=== PATIENT | female | born 1965 | race Caucasian/White ===

== ENCOUNTER → 2016-09-18 | Outpatient (CLI) | payer OTHER ==
[~2016-09-18] MED LIST: ACTIGALL300 MG GT; ALPRAZOLAM0.25 MG GT; ALPRAZOLAM0.5 MG GT; ALPRAZOLAM0.5 MG PO; ANTIHIST12.5 MG/5 GT; APAP PO; ATARAX10 MG GT; ATARAX10 MG PO; ATARAX2 MG/ML GT; AUGMENTIN600 MG/5 M PO; Atarax GT; Atarax PO; BENADRYL25 MG GT; BENTYL10 MG PO; BENTYL20 MG GT; BUSPAR15 MG GT; CHERATUSSIN AC473 ML PO; CHILDREN'S ASPI81 M1 GT; CHILDREN'S100 MG/5 M GT; Children's Advil GT; Colchicine,Colcrys PO; DICYCLOMINE HCL20 MG GT; DILAUDID1 GM MC; DILAUDID2 MG GT; DILAUDID2 MG PO; Dilaudid GT; FERROUS SULFAT325 MG GT; FERROUS SULFAT325 MG PO; FLEXERIL10 MG GT; Feosol GT; Flexeril PO; GABAPENTIN300 MG GT; GAS RELIEF125 M1 GT; HYDROMORPHONE GT; HYDROXYZINE HCL10 MG GT; IBUPROFEN600 MG PO; KEFLEX250 MG/5 M PO; LASIX20 MG PO; LEVAQUIN500 MG PO; LEXAPRO10 MG GT; LEXAPRO10 MG PO; LEXAPRO20 MG GT; LIDODERM 5% P1 PATCH TD; LIQUACEL976 ML GT; LOMOTIL TABLET1 EACH GT; LOMOTIL,LONO1 TABLET GT; LOMOTIL,LONO1 TABLET PO; LOVENOX40 MG/0.4 SC; MOTRIN600 MG GT; MUPIROCIN22 GM TP; MYLANTA125 MG GT; Maalox, Mylanta GT; NAPROSYN-EC 37375 MG GT; NAPROSYN375 MG GT; NAPROSYN500 MG PO; NEURONTIN300 MG GT; NEURONTIN300 MG PO; NEURONTIN50 MG/ML GT; NEURONTIN600 MG GT; NORPRAMIN10 MG PO; Neurontin GT; OLANZAPINE15 MG PO; OSMOLITE1000 M1 GT; OSMOLITE1000 M1 PO; OXYCODONE-APAP1 EACH GT; PERCOCET 10/1 TABLET GT; PERCOCET 5/31 TABLET GT; PERCOCET 5/31 TABLET PO; PHENERGAN12.5 M1 G-TUBE; PHENERGAN25 MG PR; PREVACID SOLUTA30 M1 GT; PROMETHAZINE GT; PROMETHAZINE HC25 M1 G-TUBE; PROMETHAZINE HC25 M1 GT; PROPOXY N PO; PROPOXYPHENE1 TABLET PO; Pepcid IV; RANITIDINE HCL150 MG PO; RANITIDINE HCL300 M1 GT; RANITIDINE HCL300 MG GT; RANITIDINE HCL300 MG PO; REGLAN10 MG/10 M GT; Silvadene,SSD,Therma TP; TRAMADOL HCL50 MG GT; TYLENOL PM1 CAPLET GT; TYLENOL650 MG/20. GT; Tylenol PR; UNISOM SLEEP AI25 MG PO; VANCOCIN HCL125 MG PO; Vancocin Oral Soluti GT; Vancocin Oral Solution GT; XANAX0.25 MG GT; XANAX0.5 MG GT; XANAX0.5 MG PO; Xanax GT; ZANTAC150 M1 PO; ZANTAC300 MG GT; ZYVOX600 MG PO; Zantac GT; [UNRECOGNIZED DRUG - OTHER] PO; [UNRECOGNIZED DRUG - REMARK] J; celeXA GT
== END | disposition home or self-care (01) ==
LOC: RAD 13:18 → EDSTATUS 13:30 → RAD 13:30
PROC: 0DH67UZ Insertion of Feeding Device into Stomach, Via Natural or Artificial Opening (ICD-10-PCS; principal; 2016-09-18)
DX: K94.20 Gastrostomy complication, unspecified (principal)
CPT/HCPCS: B4087; C1769

== ENCOUNTER → 2016-11-12 | Outpatient (CLI) | payer OTHER ==
[~2016-11-12] MED LIST changes: +ALLEGRA ALLERG180 MG PO; +MIRTAZAPINE7.5 MG PO; +NEURONTIN100 MG PO; +PRILOSEC20 MG PO; +ZANAFLEX2 M1 PO
== END | disposition home or self-care (01) ==
LOC: RAD 13:44 → EDSTATUS 14:30
PROC: 0DH67UZ Insertion of Feeding Device into Stomach, Via Natural or Artificial Opening (ICD-10-PCS; principal; 2016-11-12)
DX: K94.20 Gastrostomy complication, unspecified (principal)
CPT/HCPCS: B4087; C1766

== ENCOUNTER → 2017-01-14 | Outpatient (CLI) | payer OTHER | END | disposition home or self-care (01) | LOC: RAD 14:28 | PROC: 0DH67UZ Insertion of Feeding Device into Stomach, Via Natural or Artificial Opening (ICD-10-PCS; principal; 2017-01-14) | DX: K94.20 Gastrostomy complication, unspecified (principal) | CPT/HCPCS: B4087; C1769 ==

== ENCOUNTER → 2017-03-17 | Outpatient (CLI) | payer OTHER | END | disposition home or self-care (01) | LOC: RAD 12:32 → EDSTATUS 13:30 | PROC: 0DHA7DZ Insertion of Intraluminal Device into Jejunum, Via Natural or Artificial Opening (ICD-10-PCS; principal; 2017-03-17) | DX: K94.20 Gastrostomy complication, unspecified (principal) | CPT/HCPCS: B4087; C1769 ==

== ENCOUNTER → 2017-05-19 | Outpatient (CLI) | payer OTHER | END | disposition home or self-care (01) | LOC: EDSTATUS 05-14 14:30 → RAD 05-14 14:30 | PROC: 0DH87UZ Insertion of Feeding Device into Small Intestine, Via Natural or Artificial Opening (ICD-10-PCS; principal; 2017-05-19) | DX: K94.20 Gastrostomy complication, unspecified (principal) | CPT/HCPCS: C1769 ==

== ENCOUNTER → 2017-07-21 | Outpatient (CLI) | payer OTHER ==
[~2017-07-21] MED LIST changes: +VITAMIN B122500 MCG GT
== END | disposition home or self-care (01) ==
LOC: RAD 07-20 09:00
DX: K94.20 Gastrostomy complication, unspecified (principal)
CPT/HCPCS: B4087; C1769

== ENCOUNTER → 2017-09-22 | Outpatient (CLI) | payer OTHER | END | disposition home or self-care (01) | LOC: RAD 09:00 | PROC: 0DH87UZ Insertion of Feeding Device into Small Intestine, Via Natural or Artificial Opening (ICD-10-PCS; principal; 2017-09-22) | PROC: 0DH67UZ Insertion of Feeding Device into Stomach, Via Natural or Artificial Opening (ICD-10-PCS; 2017-09-22) | DX: R13.10 Dysphagia, unspecified (principal) | CPT/HCPCS: B4087; C1769 ==

== ENCOUNTER 2017-10-08 03:05 | Emergency (ER) | payer OTHER ==
[~2017-10-08] VITALS: Ht 154.9 cm; Wt 60.0 kg
[~2017-10-08 03:05] MED LIST changes: -DOXYCYCLINE HY100 MG PO; -TYLENOL WITH C1 EACH PO
[2017-10-08] MEDS ORDERED: DOXYCYCLINE HY100 MG PO (07:36)
[2017-10-08] MEDS ORDERED: TYLENOL WITH C1 EACH PO (07:36)
[2017-10-08 07:46] VITALS: BP 120/74
== END 2017-10-08 07:48 | disposition home or self-care (01) ==
LOC: EME 03:05
DX: M25.512 Pain in left shoulder (principal); L03.90 Cellulitis, unspecified; F41.9 Anxiety disorder, unspecified; R56.9 Unspecified convulsions; G43.909 Migraine, unspecified, not intractable, without status migrainosus; Z93.1 Gastrostomy status; Z93.4 Other artificial openings of gastrointestinal tract status; Z87.891 Personal history of nicotine dependence; Z85.9 Personal history of malignant neoplasm, unspecified; Z90.710 Acquired absence of both cervix and uterus; Z88.0 Allergy status to penicillin; Z88.5 Allergy status to narcotic agent
CPT/HCPCS: 73030; 99281; 99284

== ENCOUNTER → 2017-10-08 | Outpatient (CLI) | payer OTHER ==
[~2017-10-08] VITALS: Ht 154.9 cm; Wt 57.2 kg
[~2017-10-08] MED LIST changes: +DOXYCYCLINE HY100 MG PO; +TYLENOL WITH C1 EACH PO
[2017-10-08 08:09] VITALS: BP 113/66
[2017-10-08 08:25] LABS: BASOPHIL (%) 0.3 % (0-1); EOSINOPHIL COUNT 0.1 K/uL (0-0.3); HEMATOCRIT 37.4 % (36.0-46.0); HEMOGLOBIN 12.6 G/DL (11.9-15.5); IMMATURE GRANULOCYTE (%) 0.2 % (0.0-0.7); LYMPHOCYTE (%) 12.5 % (15-42); LYMPHOCYTE COUNT 0.7 K/uL (1.0-2.8); MCH 31.6 PG (29.0-34.0); MCHC 33.7 G/DL (30.0-36.0); MCV 93.7 FL (83-99); MONOCYTE (%) 4.4 % (3-12); MONOCYTE COUNT 0.3 K/uL (0-0.8); NEUTROPHIL (%) 81.6 % (45-76); NEUTROPHIL COUNT 4.8 K/uL (1.8-6.4); PLATELET COUNT 231 K/uL (156-360); RBC DIS.WIDTH-CV 10.8 % (11.8-14.6); RBC DIS.WIDTH-SD 36.9 % (39-53); RED BLOOD COUNT 3.99 M/uL (3.80-5.20); WHITE BLOOD COUNT 5.9 K/uL (4.1-10.2)
[2017-10-08 08:57] LABS: CHLORIDE 105 MEQ/L (99-109); CREATININE 0.6 MG/DL (0.6-1.3); GFR ESTIMATE (CALCULATED) > 59 mL/min/; GLUCOSE 104 mg/dL (70-99); POTASSIUM 4.4 MEQ/L (3.7-5.4); SODIUM 142 MEQ/L (136-147); UREA NITROGEN (BUN) 20 mg/dL (9-23)
== END | disposition home or self-care (01) ==
LOC: IVINF 07:53
PROVIDERS: Family Medicine Sports Medicine
DX: Z45.2 Encounter for adjustment and management of vascular access device (principal)
CPT/HCPCS: 80048; 82607; 85025

== ENCOUNTER 2017-11-11 22:25 | Emergency (ER) | payer OTHER ==
[~2017-11-11] VITALS: Ht 154.9 cm; Wt 64.1 kg
[~2017-11-11 22:25] MED LIST changes: +DOXYCYCLINE HY100 MG PO; +TYLENOL WITH C1 EACH PO
[2017-11-12 00:01] LABS: HEMATOCRIT 34.1 % (36.0-46.0); HEMOGLOBIN 11.9 G/DL (11.9-15.5); MCH 32.7 PG (29.0-34.0); MCHC 34.9 G/DL (30.0-36.0); MCV 93.7 FL (83-99); PLATELET COUNT 173 K/uL (156-360); RBC DIS.WIDTH-CV 10.9 % (11.8-14.6); RBC DIS.WIDTH-SD 37.3 % (39-53); RED BLOOD COUNT 3.64 M/uL (3.80-5.20); WHITE BLOOD COUNT 10.8 K/uL (4.1-10.2)
[2017-11-12 00:09] LABS: ALBUMIN 3.8 g/dL (3.2-4.8); CHLORIDE 104 mEq/L (99-109); POTASSIUM 3.8 mEq/L (3.7-5.4); SODIUM 140 mEq/L (136-147)
[2017-11-12 00:11] LABS: GLUCOSE 113 mg/dL (70-99); TOTAL PROTEIN 6.8 g/dL (6.4-8.3)
[2017-11-12 00:13] LABS: TOTAL BILIRUBIN 0.5 mg/dL (0.0-1.0)
[2017-11-12 00:15] LABS: ALKALINE PHOSPHATASE 186 IU/L (3-129); CREATININE 0.7 mg/dL (0.6-1.3); GFR ESTIMATE (CALCULATED) > 59 mL/min/
[2017-11-12 00:16] LABS: UREA NITROGEN (BUN) 20 mg/dL (9-23)
[2017-11-12 00:17] LABS: AST (GOT) 53 IU/L (2-34)
[2017-11-12 00:18] LABS: ALT (GPT) 56 IU/L (3-49)
[2017-11-12 00:22] LABS: TROP-I INTERPRETATION NEGATIVE; TROPONIN-I < 0.01 ng/mL (0.0-0.30)
[2017-11-12 02:14] LABS: CREATINE KINASE 205 IU/L (1-294)
[2017-11-12 06:20] LABS: APPEARANCE CLEAR ((CLEAR)); BILIRUBIN NEGATIVE; BLOOD NEGATIVE; COLOR YELLOW ((YELLOW)); GLUCOSE (STRIP) NEGATIVE; KETONES NEGATIVE; LEUKOCYTES SMALL; NITRITE NEGATIVE; PROTEIN (STRIP) NEGATIVE; UROBILINOGEN 0.2 MG/DL (0.2-1.0)
[2017-11-12 06:22] LABS: SPECIFIC GRAVITY > 1.060 (1.000-1.030)
[2017-11-12 06:24] LABS: BACTERIA NONE SEEN /HPF; EPITHELIAL CELLS RARE /HPF; MUCUS NONE SEEN /LPF; RED BLOOD CELLS 0-5 /HPF (0-5); UCUL ADDED? NO; WHITE BLOOD CELLS 0-5 /HPF (0-5)
[2017-11-12 06:28] VITALS: BP 129/76
== END 2017-11-12 06:29 | disposition short-term general hospital (02) ==
LOC: EME → EDBD 22:25 → EME 11-12 06:29
PROVIDERS: Emergency Medicine
DX: S12.401A Unspecified nondisplaced fracture of fifth cervical vertebra, initial encounter for closed fracture (principal); S22.060A Wedge compression fracture of T7-T8 vertebra, initial encounter for closed fracture; S72.011A Unspecified intracapsular fracture of right femur, initial encounter for closed fracture; R55 Syncope and collapse; W18.30XA Fall on same level, unspecified, initial encounter; I31.3 Pericardial effusion (noninflammatory); J90 Pleural effusion, not elsewhere classified; J21.9 Acute bronchiolitis, unspecified; R00.0 Tachycardia, unspecified; M26.69 Other specified disorders of temporomandibular joint; F41.9 Anxiety disorder, unspecified; Z98.1 Arthrodesis status; Z93.1 Gastrostomy status; Z87.891 Personal history of nicotine dependence; Z90.710 Acquired absence of both cervix and uterus; Z85.9 Personal history of malignant neoplasm, unspecified; Z88.5 Allergy status to narcotic agent; Z88.0 Allergy status to penicillin; Z88.6 Allergy status to analgesic agent; Z88.1 Allergy status to other antibiotic agents
CPT/HCPCS: 70450; 71275; 72125; 72132; 73552; 74177; 80053; 81003; 82550; 84484; 85027; 93005; 99281; 99285; J1170; J2060; J3010; J7030; J7050

== ENCOUNTER → 2018-01-12 | Outpatient (CLI) | payer OTHER ==
[~2018-01-12] MED LIST changes: +ARTIFICIAL TEAR15 M1 BOTH EYES; +BACID1 CAP PO; +DULCOLAX10 MG PR; +FEOSOL325 MG GT; +GABAPENTIN600 MG PO; +KLONOPIN0.5 M1 GT; +PRILOSEC20 MG GT; -PRILOSEC20 MG PO; +RANITIDINE15 MG/1 ML GT; +SANTYL30 GM TP; +TYLENOL REGULA325 MG GT; +VANCOCIN HCL125 MG GT
== END | disposition home or self-care (01) ==
LOC: RAD 14:22
PROC: 0DH87UZ Insertion of Feeding Device into Small Intestine, Via Natural or Artificial Opening (ICD-10-PCS; principal; 2018-01-12)
DX: K94.23 Gastrostomy malfunction (principal)
CPT/HCPCS: B4087; C1769

== ENCOUNTER 2018-01-22 08:12 | Emergency (ER) | payer OTHER ==
[~2018-01-22] VITALS: Ht 175.3 cm; Wt 62.7 kg
[~2018-01-22 08:12] MED LIST changes: +GABAPENTIN600 MG GT; -GABAPENTIN600 MG PO
[2018-01-22 10:52] LABS: HEMATOCRIT 36.7 % (36.0-46.0); HEMOGLOBIN 12.2 G/DL (11.9-15.5); MCH 31.1 PG (29.0-34.0); MCHC 33.2 G/DL (30.0-36.0); MCV 93.6 FL (83-99); PLATELET COUNT 241 K/uL (156-360); RBC DIS.WIDTH-CV 12.4 % (11.8-14.6); RBC DIS.WIDTH-SD 42.4 % (39-53); RED BLOOD COUNT 3.92 M/uL (3.80-5.20); WHITE BLOOD COUNT 5.4 K/uL (4.1-10.2)
[2018-01-22 11:06] LABS: CHLORIDE 108 mEq/L (99-109)
[2018-01-22 11:07] LABS: POTASSIUM 4.3 mEq/L (3.7-5.4); SODIUM 142 mEq/L (136-147)
[2018-01-22 11:08] LABS: GLUCOSE 78 mg/dL (70-99)
[2018-01-22 11:12] LABS: CREATININE 0.7 mg/dL (0.6-1.3); GFR ESTIMATE (CALCULATED) > 59 mL/min/
[2018-01-22 11:13] LABS: UREA NITROGEN (BUN) 11 mg/dL (9-23)
[2018-01-22] MEDS ORDERED: LEVAQUIN500 MG PO (19:18)
[2018-01-22 19:28] VITALS: BP 104/76
[2018-01-27] MEDS ORDERED: BENTYL20 MG GT (08:12)
[2018-01-27] MEDS ORDERED: FLEET ENEMA-AD118 ML PR (08:14)
[2018-01-27] MEDS ORDERED: SANTYL30 GM TP (08:16)
[2018-01-27] MEDS ORDERED: VITAMIN B122500 MCG GT (08:17)
== END 2018-01-22 19:28 | disposition home or self-care (01) ==
LOC: EME 08:12
PROVIDERS: Family Medicine
DX: L03.116 Cellulitis of left lower limb (principal); M79.89 Other specified soft tissue disorders; I89.0 Lymphedema, not elsewhere classified; Z88.0 Allergy status to penicillin; I51.7 Cardiomegaly; K76.0 Fatty (change of) liver, not elsewhere classified; Z90.710 Acquired absence of both cervix and uterus; Z93.1 Gastrostomy status; Z93.4 Other artificial openings of gastrointestinal tract status; Z87.891 Personal history of nicotine dependence
CPT/HCPCS: 71046; 74177; 80048; 85027; 93971; 99281; 99285; J2270; J2405

== ENCOUNTER → 2018-03-15 | Outpatient (CLI) | payer OTHER ==
[~2018-03-15] MED LIST changes: +FLEET ENEMA-AD118 ML PR; +OXYCONTIN10 MG PO
== END | disposition home or self-care (01) ==
LOC: RAD 13:36
PROC: 0DH67UZ Insertion of Feeding Device into Stomach, Via Natural or Artificial Opening (ICD-10-PCS; principal; 2018-03-15)
PROC: 0DH87UZ Insertion of Feeding Device into Small Intestine, Via Natural or Artificial Opening (ICD-10-PCS; principal; 2018-03-15)
DX: R13.10 Dysphagia, unspecified (principal); K94.20 Gastrostomy complication, unspecified
CPT/HCPCS: B4087; C1769

== ENCOUNTER → 2018-04-08 | Outpatient (CLI) | payer OTHER | END | disposition home or self-care (01) | LOC: RAD 15:00 | PROC: 0DH87UZ Insertion of Feeding Device into Small Intestine, Via Natural or Artificial Opening (ICD-10-PCS; principal; 2018-04-08) | DX: R13.10 Dysphagia, unspecified (principal); K94.20 Gastrostomy complication, unspecified | CPT/HCPCS: B4087; C1769 ==

== ENCOUNTER 2018-04-23 11:08 | Emergency (ER) | payer OTHER ==
[~2018-04-23] VITALS: Ht 154.9 cm; Wt 57.3 kg
[2018-04-23 15:21] VITALS: BP 116/76
== END 2018-04-23 15:32 | disposition home or self-care (01) ==
LOC: EME 11:08
DX: S22.32XA Fracture of one rib, left side, initial encounter for closed fracture (principal); S27.0XXA Traumatic pneumothorax, initial encounter; M54.2 Cervicalgia; M54.6 Pain in thoracic spine; W01.0XXA Fall on same level from slipping, tripping and stumbling without subsequent striking against object, initial encounter; Z98.1 Arthrodesis status; Z93.1 Gastrostomy status; Z88.0 Allergy status to penicillin; Z87.891 Personal history of nicotine dependence
CPT/HCPCS: 70450; 71046; 72125; 72128; 81003; 99281; 99285